=== PATIENT | female | born 1965 | race Caucasian/White ===

== ENCOUNTER 2016-12-31 16:38 | Emergency (ER) | payer MEDICAID ==
[~2016-12-31] VITALS: Ht 160 cm; Wt 99.8 kg
[~2016-12-31 16:38] MED LIST: LISI-646 PO
[2016-12-31 17:32] VITALS: BP 150/90
[2016-12-31] MEDS ORDERED: methylPREDNISolone SOD SUCC 125 MG/2 ML VL IM ONE (19:15)
[2016-12-31] MEDS ORDERED: diphenhdrAMINE HCL 25 MG CAP PO ONE (19:15)
[2016-12-31] MEDS ORDERED: methylPREDNISolone SOD SUCC 125 MG/2 ML VL IV ONE (19:45)
[2016-12-31] MEDS ORDERED: diphenhdrAMINE HCL 50 MG/1 ML VL IV ONE (19:45)
== END 2016-12-31 20:16 | disposition home or self-care (01) ==
LOC: ER 16:38 → EDBD 16:38 → ER 20:16
DX: T78.40XA Allergy, unspecified, initial encounter (principal); I10 Essential (primary) hypertension; F17.210 Nicotine dependence, cigarettes, uncomplicated; Z90.89 Acquired absence of other organs
CPT/HCPCS: 96374; 96375; 99284; J1200; J2930

== ENCOUNTER 2017-12-10 22:05 | Inpatient (IN) | payer MEDICAID, OTHER ==
[~2017-12-10] VITALS: Ht 153.4 cm; Wt 96.4 kg
[2017-12-10 23:38] LABS: Basophils # (auto) 0.1 uL; Basophils % (auto) 0.7 % (0.0-2.0); Eosinophils # (auto) 0.1 uL; Eosinophils % (auto) 1.4 % (0.0-7.0); Hematocrit 45.8 % (36.0-46.0); Hemoglobin 15.3 g/dL (12.2-16.2); Lymphocytes # (auto) 2.6 uL; Lymphocytes % (auto) 37.6 % (10.0-50.0); Mean Corpuscular Hemoglobin 28.7 pg (28.0-32.0); Mean Corpuscular Hgb Conc. 33.3 g/dL (32.0-36.0); Monocytes # (auto) 0.4 uL; Monocytes % (auto) 6.1 % (0.0-12.0); Neutrophils # (auto) 3.8 uL; Neutrophils % (auto) 54.2 % (37.0-80.0); Nucleated Red Blood Cells % 0.3 %; Platelet Count (auto) 182 10^3/uL (140-450); Red Blood Cells 5.33 10^6/uL (4.0-5.20); Red Cell Distribution Width 14.3 % (11.8-14.3)
[2017-12-10 23:53] LABS: Albumin 3.4 g/dL (3.4-5.0); Anion Gap 8 (5-15); Blood Urea Nitrogen 14 mg/dL (7-18); Calcium 9.9 mg/dL (8.5-10.1); Carbon Dioxide 27 mmol/L (21-32); Chloride 106 mmol/L (98-107); Glucose 100 mg/dL (74-106); INR 0.91 (0.9-1.15); Partial Thromboplastin Time 25.7 sec (22.64-33.71); Potassium 4.1 mmol/L (3.5-5.1); Prothrombin Time 9.9 sec (9.37-12.3); Sodium 141 mmol/L (136-145)
[2017-12-10 23:55] LABS: Alanine Aminotransferase 97 U/L (13-56); Aspartate Aminotransferase 51 U/L (15-37); BUN/Creatinine Ratio 12.7; GFR African American 67 mL/min; GFR Non-African American 55 mL/min
[2017-12-10 23:59] LABS: Alkaline Phosphatase 159 U/L (45-117); Bilirubin, Total 0.3 mg/dL (0.2-1.0); Total Protein 7.3 g/dL (6.4-8.2)
[2017-12-11] MEDS ORDERED: SODIUM CHLORIDE 0.9% 1,000 ML IV ONE (07:48)
[2017-12-11] MEDS ORDERED: TEMAZEPAM 15 MG CAP PO PRN (09:00)
[2017-12-11] MEDS ORDERED: ACETAMINOPHEN 325 MG TAB PO PRN (09:00)
[2017-12-11] MEDS ORDERED: LISINOPRIL 20 MG TAB PO ONE (09:00)
[2017-12-11] MEDS ORDERED: cloNIDine HCL 0.1 MG TAB PO PRN (09:00)
[2017-12-11] MEDS ORDERED: DOCUSATE SOD 100 MG CAP PO PRN (09:00)
[2017-12-11] MEDS ORDERED: ONDANSETRON HCL 4 MG/2 ML VIAL IV PRN (09:00)
[2017-12-11] MEDS: MULTIPLE VITAMIN TAB PO SCH (09:16)
[2017-12-11] MEDS: SODIUM CHLOR 0.9% PF (SALINE LOCK) 10ML VIAL/SYR IV SCH ×2 (09:16→22:32)
[2017-12-11] MEDS: NICOTINE 21MG/24 HR TOPICAL PATCH TD SCH (10:43)
[2017-12-11] MEDS: HYDROcodone-ACET 5/325MG TAB PO PRN (10:47)
[2017-12-11 12:25] LABS: Urine Bacteria NONE SEEN /hpf (None Seen); Urine Blood 1+ /uL (Negative); Urine Mucus FEW (None Seen); Urine Specific Gravity 1.026 (1.001-1.035); Urine WBC 11 /hpf (0 - 5)
[2017-12-11] MEDS ORDERED: LORazepam 2MG/ML-1ML VIAL IV PRN (18:30)
[2017-12-11 20:30] VITALS: BP 120/73
[2017-12-12 00:29] VITALS: BP 120/73
[2017-12-12] MEDS ORDERED: diphenhdrAMINE HCL 25 MG CAP PO ONE (00:30)
[2017-12-12 05:00] VITALS: BP 119/72
[2017-12-12] MEDS: SODIUM CHLOR 0.9% PF (SALINE LOCK) 10ML VIAL/SYR IV SCH ×3 (06:16→21:53)
[2017-12-12 07:40] LABS: Basophils # (auto) 0 uL; Basophils % (auto) 0.6 % (0.0-2.0); Eosinophils # (auto) 0.1 uL; Eosinophils % (auto) 2.2 % (0.0-7.0); Hematocrit 42.4 % (36.0-46.0); Hemoglobin 14.1 g/dL (12.2-16.2); Lymphocytes # (auto) 2.8 uL; Lymphocytes % (auto) 42.6 % (10.0-50.0); Mean Corpuscular Hemoglobin 28.7 pg (28.0-32.0); Mean Corpuscular Hgb Conc. 33.3 g/dL (32.0-36.0); Mean Corpuscular Volume 86.1 fL (80.0-100.0); Monocytes # (auto) 0.5 uL; Monocytes % (auto) 8.1 % (0.0-12.0); Neutrophils % (auto) 46.5 % (37.0-80.0); Nucleated Red Blood Cells % 0.3 %; Platelet Count (auto) 156 10^3/uL (140-450); Red Blood Cells 4.92 10^6/uL (4.0-5.20); Red Cell Distribution Width 13.9 % (11.8-14.3); White Blood Cell 6.5 10^3/uL (4.4-10.8)
[2017-12-12 07:45] LABS: Albumin 3.1 g/dL (3.4-5.0); BUN/Creatinine Ratio 19.8; Bilirubin, Total 0.4 mg/dL (0.2-1.0); Calcium 9.8 mg/dL (8.5-10.1); Total Protein 6.5 g/dL (6.4-8.2)
[2017-12-12 08:54] VITALS: BP 124/56
[2017-12-12] MEDS: MORPHINE SULFATE 8mg/ml INJ SDV IV PRN ×3 (08:57→17:01)
[2017-12-12] MEDS: LISINOPRIL 20 MG TAB PO SCH (10:00)
[2017-12-12] MEDS: NICOTINE 21MG/24 HR TOPICAL PATCH TD SCH (10:00)
[2017-12-12] MEDS: HYDROcodone-ACET 5/325MG TAB PO PRN ×2 (10:21→17:54)
[2017-12-12] MEDS: MULTIPLE VITAMIN TAB PO SCH (10:23)
[2017-12-12 11:56] LABS: Folate (Folic Acid) 7.68 ng/mL (5.38-24)
[2017-12-12] MEDS ORDERED: OPTISON 3ml Vial for INJ IV ONE (16:03)
[2017-12-12 16:27] VITALS: BP 137/86
[2017-12-12 19:30] LABS: Cholesterol 181 mg/dL (< 200); HDL Cholesterol 65 mg/dL (40-59); LDL Cholesterol 106 mg/dL (< 100); Triglycerides 118 mg/dL (< 150)
[2017-12-12] MEDS: ATORVASTATIN 20 MG TAB PO SCH (21:51)
[2017-12-12 22:00] VITALS: BP 128/65
[2017-12-13 05:00] VITALS: BP 118/66
[2017-12-13] MEDS: SODIUM CHLOR 0.9% PF (SALINE LOCK) 10ML VIAL/SYR IV SCH ×3 (05:28→21:30)
[2017-12-13 06:51] LABS: Albumin 3.4 g/dL (3.4-5.0); Calcium 10.3 mg/dL (8.5-10.1)
[2017-12-13 06:59] LABS: Bilirubin, Total 0.3 mg/dL (0.2-1.0); Potassium 4.1 mmol/L (3.5-5.1); Total Protein 6.8 g/dL (6.4-8.2)
[2017-12-13 09:00] VITALS: BP 159/87
[2017-12-13] MEDS: ASPirin-EC 81 mg tab PO SCH (09:22)
[2017-12-13] MEDS: MULTIPLE VITAMIN TAB PO SCH (09:22)
[2017-12-13] MEDS: LISINOPRIL 20 MG TAB PO SCH (09:28)
[2017-12-13 13:00] VITALS: BP 129/81
[2017-12-13] MEDS ORDERED: LIDOCAINE VISCOUS 2% 15ML UD PO ONE (14:00)
[2017-12-13] MEDS ORDERED: fentaNYL CITRATE 100 MCG/2 ML VL IV ONE (14:00)
[2017-12-13] MEDS ORDERED: MIDAZOLAM HCL 1MG/1ML-2 ML VIAL IV ONE (14:00)
[2017-12-13] MEDS ORDERED: LIDOCAINE VISCOUS 2% 15ML UD ONE (14:01)
[2017-12-13] MEDS ORDERED: fentaNYL CITRATE 100 MCG/2 ML VL ONE (14:02)
[2017-12-13] MEDS ORDERED: MIDAZOLAM HCL 1MG/1ML-2 ML VIAL ONE (14:02)
[2017-12-13 15:47] VITALS: BP 133/76
[2017-12-13 21:30] VITALS: BP 150/83
[2017-12-13] MEDS: ATORVASTATIN 20 MG TAB PO SCH (21:30)
[2017-12-14 04:55] VITALS: BP 130/71
[2017-12-14] MEDS: SODIUM CHLOR 0.9% PF (SALINE LOCK) 10ML VIAL/SYR IV SCH ×2 (05:53→09:04)
[2017-12-14 06:59] LABS: Basophils # (auto) 0 uL; Basophils % (auto) 0.5 % (0.0-2.0); Eosinophils # (auto) 0.1 uL; Eosinophils % (auto) 1.8 % (0.0-7.0); Hematocrit 43.9 % (36.0-46.0); Hemoglobin 14.9 g/dL (12.2-16.2); Lymphocytes # (auto) 2.5 uL; Lymphocytes % (auto) 38.3 % (10.0-50.0); Mean Corpuscular Hemoglobin 28.9 pg (28.0-32.0); Mean Corpuscular Hgb Conc. 33.9 g/dL (32.0-36.0); Mean Corpuscular Volume 85.3 fL (80.0-100.0); Monocytes # (auto) 0.5 uL; Monocytes % (auto) 7.7 % (0.0-12.0); Neutrophils # (auto) 3.4 uL; Neutrophils % (auto) 51.7 % (37.0-80.0); Nucleated Red Blood Cells % 0.2 %; Platelet Count (auto) 157 10^3/uL (140-450); Red Blood Cells 5.15 10^6/uL (4.0-5.20); Red Cell Distribution Width 13.7 % (11.8-14.3); White Blood Cell 6.6 10^3/uL (4.4-10.8)
[2017-12-14 07:14] LABS: BUN/Creatinine Ratio 21.2; Calcium 10.2 mg/dL (8.5-10.1)
[2017-12-14 09:00] VITALS: BP 140/80
[2017-12-14] MEDS: ASPirin-EC 81 mg tab PO SCH (09:04)
[2017-12-14] MEDS: MULTIPLE VITAMIN TAB PO SCH (09:04)
[2017-12-14] MEDS: LISINOPRIL 20 MG TAB PO SCH (09:04)
[2017-12-14 13:00] VITALS: BP 138/76
== END 2017-12-14 12:51 | disposition home or self-care (01) | DRG 45 ==
LOC: EDBD 22:05 → ER 22:05 → OVERFLOW 22:06 → TELE-EAST 12-11 20:13 → EAST 12-11 21:55 → TELE-EAST 12-12 01:33 → EAST 12-13 22:52
PROVIDERS: ADMIT Internal Medicine; ATTEND Internal Medicine
PROC: B24BZZ4 Ultrasonography of Heart with Aorta, Transesophageal (ICD-10-PCS; principal; 2017-12-13)
DX: I63.9 Cerebral infarction, unspecified (principal); G93.6 Cerebral edema; I67.4 Hypertensive encephalopathy; N18.3 Chronic kidney disease, stage 3 (moderate); Z68.41 Body mass index [BMI] 40.0-44.9, adult; E66.01 Morbid (severe) obesity due to excess calories; I16.1 Hypertensive emergency; I12.9 Hypertensive chronic kidney disease with stage 1 through stage 4 chronic kidney disease, or unspecified chronic kidney disease; G47.00 Insomnia, unspecified; K59.00 Constipation, unspecified; R79.89 Other specified abnormal findings of blood chemistry; F17.210 Nicotine dependence, cigarettes, uncomplicated; Z91.14 Patient's other noncompliance with medication regimen; Z91.19 Patient's noncompliance with other medical treatment and regimen; Z90.49 Acquired absence of other specified parts of digestive tract; Z90.89 Acquired absence of other organs; Z86.73 Personal history of transient ischemic attack (TIA), and cerebral infarction without residual deficits; Z82.49 Family history of ischemic heart disease and other diseases of the circulatory system
CPT/HCPCS: 36415; 70450; 70551; 71046; 80048; 80053; 80061; 81001; 82607; 82746; 83735; 84443; 84484; 85025; 85610; 85730; 93005; 93306; 93312; 93886; 94761; 95819; 96360; J2250; J2270; Q9956

== ENCOUNTER 2018-05-22 12:48 | Emergency (ER) | payer MEDICAID ==
[~2018-05-22] VITALS: Ht 157.5 cm; Wt 100.7 kg
[2018-05-22 13:23] LABS: Basophils # (auto) 0.1 uL; Basophils % (auto) 0.8 % (0.0-2.0); Eosinophils # (auto) 0.1 uL; Hematocrit 43.8 % (36.0-46.0); Hemoglobin 14.7 g/dL (12.2-16.2); Lymphocytes # (auto) 2.5 uL; Lymphocytes % (auto) 36.3 % (10.0-50.0); Mean Corpuscular Hemoglobin 29.5 pg (28.0-32.0); Mean Corpuscular Hgb Conc. 33.6 g/dL (32.0-36.0); Mean Corpuscular Volume 87.8 fL (80.0-100.0); Monocytes # (auto) 0.4 uL; Monocytes % (auto) 6.5 % (0.0-12.0); Neutrophils # (auto) 3.8 uL; Neutrophils % (auto) 55.4 % (37.0-80.0); Nucleated Red Blood Cells % 0.2 %; Platelet Count (auto) 188 10^3/uL (140-450); Red Blood Cells 4.99 10^6/uL (4.0-5.20); Red Cell Distribution Width 13.6 % (11.8-14.3); White Blood Cell 6.9 10^3/uL (4.4-10.8)
[2018-05-22 13:33] LABS: INR 0.89 (0.9-1.15); Partial Thromboplastin Time 25.9 sec (23.78-33.04); Prothrombin Time 9.6 sec (9.27-12.13)
[2018-05-22 13:37] LABS: Albumin 3.8 g/dL (3.4-5.0); BUN/Creatinine Ratio 6.8; Bilirubin, Total 0.6 mg/dL (0.2-1.0); Calcium 10.4 mg/dL (8.5-10.1); Potassium 4.7 mmol/L (3.5-5.1); Total Protein 7.7 g/dL (6.4-8.2)
[2018-05-22 15:53] VITALS: BP 157/86
== END 2018-05-22 15:30 | disposition home or self-care (01) ==
LOC: ER 12:49
DX: D25.9 Leiomyoma of uterus, unspecified (principal); I10 Essential (primary) hypertension; F17.210 Nicotine dependence, cigarettes, uncomplicated; F12.10 Cannabis abuse, uncomplicated; Z90.49 Acquired absence of other specified parts of digestive tract
CPT/HCPCS: 36415; 76856; 80053; 85025; 85610; 85730

== ENCOUNTER 2022-02-17 08:08 | Emergency (ER) | payer MEDICAID ==
[~2022-02-17] VITALS: Ht 160 cm; Wt 108.9 kg
[2022-02-17] MEDS ORDERED: cloNIDine HCL 0.1 MG TAB PO ONE ×2 (08:30)
[2022-02-17] MEDS ORDERED: HYDROcodone-ACET 5/325MG TAB PO ONE (08:45)
[2022-02-17 09:11] VITALS: BP 150/77
[2022-02-17] MEDS ORDERED: ACET-1080 PO (09:17)
== END 2022-02-17 10:48 | disposition home or self-care (01) ==
LOC: ER 08:08
DX: S93.502A Unspecified sprain of left great toe, initial encounter (principal); F17.210 Nicotine dependence, cigarettes, uncomplicated; F12.10 Cannabis abuse, uncomplicated; I12.9 Hypertensive chronic kidney disease with stage 1 through stage 4 chronic kidney disease, or unspecified chronic kidney disease; N18.9 Chronic kidney disease, unspecified; Z90.49 Acquired absence of other specified parts of digestive tract; W22.8XXA Striking against or struck by other objects, initial encounter; Y93.39 Activity, other involving climbing, rappelling and jumping off; Y92.89 Other specified places as the place of occurrence of the external cause; Y99.8 Other external cause status
CPT/HCPCS: 73630

== ENCOUNTER 2023-05-05 15:59 | Emergency (ER) | payer MEDICAID ==
[~2023-05-05] VITALS: Ht 160 cm; Wt 118.0 kg
[~2023-05-05 15:59] MED LIST changes: +ACET-1080 PO; -LISI-646 PO
[2023-05-05] MEDS ORDERED: HYDROcodone-ACET 10/325MG TAB PO ONE (16:30)
[2023-05-05] MEDS ORDERED: HYDR-4798 PO (18:09)
[2023-05-05 18:32] VITALS: BP 125/90; PULSE 72; RESP 18; TEMP 98.6; O2SAT 98
== END 2023-05-05 18:34 | disposition home or self-care (01) ==
LOC: ER 15:59
DX: S93.402A Sprain of unspecified ligament of left ankle, initial encounter (principal); S93.602A Unspecified sprain of left foot, initial encounter; I12.9 Hypertensive chronic kidney disease with stage 1 through stage 4 chronic kidney disease, or unspecified chronic kidney disease; N18.9 Chronic kidney disease, unspecified; F17.210 Nicotine dependence, cigarettes, uncomplicated; Z90.49 Acquired absence of other specified parts of digestive tract; Z90.89 Acquired absence of other organs; Z79.899 Other long term (current) drug therapy; W18.39XA Other fall on same level, initial encounter; Y93.89 Activity, other specified; Y92.89 Other specified places as the place of occurrence of the external cause; Y99.8 Other external cause status
CPT/HCPCS: 73590; 73610; 73630

== ENCOUNTER 2024-11-16 17:47 | Inpatient (IN) | payer MEDICAID ==
[~2024-11-16] VITALS: Ht 157.5 cm; Wt 116.7 kg
[~2024-11-16 17:47] MED LIST changes: +HYDR-4798 PO
--- NOTE | 2024-11-16 18:53 | ED.PDOC ---
SOB-HPI HPI Comments 59-year-old female presents with a chief complaint of SOB x 2 days with associated midsternal chest pain. Patient states that she has been having a cough for "years" and that it is chronic. Patient is also endorsing that it feels heavy in her chest and that it is worsening. Patient states she uses inhalers at home. Patient mentions that she has a history of lung cancer, but has not had treatment or biopsy for it. Patient is sating at 98% on room air. PMHx: COPD, HTN, DM, Lung Cancer, Liver Disease, CKF PSHx" Cholecystectomy, Tonsillectomy, HPI: Poor Historian. REVIEW OF SYSTEMS: CONSTITUTIONAL: Denies acute: fever, diaphoresis, chills, generalized weakness. HEAD: Denies acute: headache, photophobia Eyes: Denies acute: Double vision, vision loss, eye pain, eye discharge. EARS: Denies acute: tinnitus, hearing loss, ear discharge, ear pain, THROAT: Denies acute: sore throat, swelling, difficulty swallowing , pain with swal lowing, change in voice. NECK: Denies acute: neck pain, neck swelling, stiff neck. HEART: Denies acute : palpitations, LUNGS: Denies acute: wheezing, cough, hemoptysis ABDOMEN: Denies acute: abdominal pain, Nausea, Vomiting, diarrhea, melena , hematemesis, hematochezia SKIN: Denies acute: rash, redness, lesions, itchiness. EXTREMITIES: Denies acute: calf pain, numbness, tingling, weakness, denies pain in extremity. Denies acute: Low back pain. Neuro: Denies acute: focal neurological deficit, motor or sensory focal neurological deficit, tremors, seizure like activity, confusion, dizziness, change in mental status, loss of bowel or bladder function, cauda equina like symptoms. : Denies acute: dysuria, hematuria, flank pain, increase in urinary frequency. PSYCH: Denies acute: hallucination, suicidal ideation, homicidal ideation. FEMALE: Denies acute: abnormal vaginal bleeding, foul odor, unusual discharge. PHYSICAL EXAM: General: no acute distress, awake and alert. Head: normocephalic, atraumatic. Neck: supple, trachea is midline, no swelling. Throat: Normal phonation. Eyes:, no erythema, no purulent discharge, no proptosis, no icterus. Heart: regular rate, regular rhythm, no significant murmur appreciated. Lungs: no apparent respiratory distress, Able to speak in full sentences. No wheezing, no rhonchi, no crackles. No stridors Clear to auscultation bilaterally. Abdomen: non tender to palpation, non distended, soft, no guarding, no rebound, + bowel sounds. Neuro: Awake, Alert, oriented to name, self, situation, follows commands GCS=15. Speech is normal. Skin: no petechia, no purpura, no cyanosis, non-pale, not jaundice. Lower extremities: --no - Pitting edema no deformity, no focal swelling, no calf TTP. Makes eye contact. moves all four extremities. Face: no apparent facial droop. Ambulating in the ED independently. 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 Was a procedure done?: No Differential Dx Differential Diagnosis: Other (DDx include ACS, unstable angina, anxiety, PE, pneumothroax, neoplasm, cardiac ischemia, COPD, asthma, CHF, pleural effusion, tobacco abuse, pneumonia, hypoxia, hypercapnia, anemia., infection/sepsis., pulmonary edema. Asthma, Cardiac tamponade, infection.) X-Ray, Labs, Meds, VS Vital Signs Date Time Temp Pulse Resp B/P (MAP) Pulse Ox O2 Delivery O2 Flow Rate FiO2 11/16/24 20:54 81 153/99 (117) 11/16/24 20:54 153/99 11/16/24 20:34 145/100 11/16/24 20:17 98.4 79 16 145/100 (115) 96 98.4 11/16/24 20:17 79 16 96 Room Air 11/16/24 18:59 74 11/16/24 18:52 98.0 59 16 154/107 (123) 98 98.0 Lab Test 11/16/24 20:24 11/16/24 19:16 Range/Units Troponin I High Sensitivity < 3 L < 3 L </=34 ng/L White Blood Count 8.5 4.4-10.8 10^3/uL Red Blood Count 5.65 H 4.0-5.20 10^6/uL Hemoglobin 16.5 H 12.2-16.2 g/dL Hematocrit 49.2 H 36.0-46.0 % Mean Corpuscular Volume 87.0 80.0-100.0 fL Mean Corpuscular Hemoglobin 29.1 28.0-32.0 pg Mean Corpuscular Hemoglobin Concent 33.4 32.0-36.0 g/dL Red Cell Distribution Width 14.0 11.8-14.3 % Platelet Count 181 140-450 10^3/uL Mean Platelet Volume 10.9 H 6.9-10.8 fL Neutrophils (%) (Auto) 54.8 37.0-80.0 % Lymphocytes (%) (Auto) 34.0 10.0-50.0 % Monocytes (%) (Auto) 8.5 0.0-12.0 % Eosinophils (%) (Auto) 1.6 0.0-7.0 % Basophils (%) (Auto) 1.1 0.0-2.0 % Neutrophils # (Auto) 4.6 1.6-8.6 10 ^3/uL Lymphocytes # (Auto) 2.9 0.4-5.4 10 ^3/uL Monocytes # (Auto) 0.7 0-1.3 10 ^3/uL Eosinophils # (Auto) 0.1 0-0.8 10 ^3/uL Basophils # (Auto) 0.1 0-0.2 10 ^3/uL Nucleated Red Blood Cells 0.5 % Sodium Level 137 136-145 mmol/L Potassium Level 4.1 3.5-5.1 mmol/L Chloride Level 102 98-107 mmol/L Carbon Dioxide Level 28 20-31 mmol/L Anion Gap 7 5-15 Blood Urea Nitrogen 10 9-23 mg/dL Creatinine 0.99 0.550-1.02 mg/dL Glomerular Filtration Rate Calc 65 >90 mL/min BUN/Creatinine Ratio 10.1 10.0-20.0 Serum Glucose 109 H 74-106 mg/dL Lactic Acid Level 1.2 0.4-2.0 mmol/L Calcium Level 11.5 H 8.7-10.4 mg/dL Total Bilirubin 0.6 0.2-1.0 mg/dL Aspartate Amino Transferase (AST) 42 H 13-40 U/L Alanine Aminotransferase (ALT) 72 H 7-40 U/L Alkaline Phosphatase 175 H 46-116 U/L B-Type Natriuretic Peptide 27.06 0-100 pg/mL Total Protein 7.7 5.7-8.2 g/dL Albumin 4.9 H 3.2-4.8 g/dL Current Medications Medications (Trade) Dose Ordered Sig/Ariela Route Start Time Stop Time Status Last Admin Albuterol (Ventolin Medneb) 2.5 mg ONCE ONCE NEB 11/16/24 18:45 11/16/24 18:46 DC 11/16/24 19:19 Ipratropium [place] (Atrovent Medneb) 1 mg ONCE ONCE NEB 11/16/24 18:45 11/16/24 18:46 DC 11/16/24 19:19 Methylprednisolone Sodium Succinate (Solu Medrol) 125 mg ONCE ONCE IV 11/16/24 18:45 11/16/24 18:46 DC 11/16/24 20:17 Nitroglycerin (Ntrostat Sublingual) 0.4 mg ONCE ONCE SL 11/16/24 20:30 11/16/24 20:31 DC 11/16/24 20:34 PATIENT: ZEESHAN PEREZ ACCT: [id number] UNIT: [id number] : 1965 LOC: ER ROOM / BED: / AGE / SEX: 59 / F ADM STATUS: REG ER SERVICE [id number] ORDERING PHYSICIAN: BHAVIN CHOI DO PROCEDURE(s): CXRP - CHEST PORTABLE REASON: sob/cp ORDER NUMBER(s): [id number], ACCESSION NUMBER(s): [id number] INDICATION: sob/cp TECHNIQUE: Frontal view of the chest. COMPARISON: None FINDINGS: The heart and mediastinal contours are grossly unremarkable. There is no evidence of pleural disease. The lungs are clear. The bony structures of the chest are intact without fracture. IMPRESSION: 1. No evidence of acute disease. ATED BY: MARGI COLLIER MD DICTATED DATE/TIME: 11/16/241905 SIGNED BY: MARGI COLLIER MD SIGNED DATE/TIME: 11/16/241905 Time of 1ST Reevaluation: 19:03 Reevaluation 1ST: Unchanged Time of 2ND Reevaluation: 21:59 Reevaluation 2ND: Improved Patient Education/Counseling: Diagnosis, Treatment Family Education/Counseling: No Family Present Comments Patient presented with the above HPI.---chest pain/shortness of breath---workup was initiated. patient was found with the above mentioned diagnosis. the following medications were ordered: please refer to order lists of meds and tests obtained by myself Dr. Choi. Patient ED course and VS have been stabilized. Patient has been reassessed in the ED and remained in a stable condition. Pertinent incidental findings were discussed with the patient and/or family. Patient/family voices understanding and is agreeable with plan. Patient has been observed in the ED adequate length of time to insure improvemen t/stability. Escalation of care considered: Consideration of escalation to observation or admission Patient was ADMITTED to the medicine team for further evaluation and treatment of their presentation. All the reports of any imaging studies that were ordered by myself were reviewed by myself. Departure 1 Departure Time of Disposition: 20:36 Impression: Primary Impression: Chest pain Additional Impressions: Dyspnea HTN (hypertension) Disposition: ADMITTED INPATIENT Admit to: Tele Condition: Guarded Discharged With: Self Critical Care Note Critical Care Time?: No I personally scribed for BHAVIN CHOI DO ([email or web address]) on 11/16/24 at 18:53. Electronically submitted by John Rios ([email or web address]). I personally scribed for BHAVIN CHOI DO ([email or web address]) on 11/16/24 at 19:11. Electronically submitted by John Rios ([email or web address]). BHAVIN CHOI DO Nov 16, 2024 18:53
--- NOTE | 2024-11-16 19:08 | DVH ---
INDICATION: sob/cp TECHNIQUE: Frontal view of the chest. COMPARISON: None FINDINGS: . The heart and mediastinal contours are grossly unremarkable. There is no evidence of pleural disea se. The lungs are clear. The bony structures of the chest are intact without fracture. IMPRESSION: 1. No evidence of acute disease.
[2024-11-16] MEDS: IPRATROPIUM BROM 0.5 MG/2.5ML INH SOL NEB ONE (19:19)
[2024-11-16] MEDS: ALBUTEROL SULF 2.5 MG/0.5ML(0.5%) NEB SOLN NEB ONE (19:19)
[2024-11-16 19:35] LABS: Basophils # (auto) 0.1 10 ^3/uL (0-0.2); Basophils % (auto) 1.1 % (0.0-2.0); Eosinophils # (auto) 0.1 10 ^3/uL (0-0.8); Eosinophils % (auto) 1.6 % (0.0-7.0); Hematocrit 49.2 % (36.0-46.0); Hemoglobin 16.5 g/dL (12.2-16.2); Lymphocytes # (auto) 2.9 10 ^3/uL (0.4-5.4); Mean Corpuscular Hemoglobin 29.1 pg (28.0-32.0); Mean Corpuscular Hgb Conc. 33.4 g/dL (32.0-36.0); Monocytes # (auto) 0.7 10 ^3/uL (0-1.3); Monocytes % (auto) 8.5 % (0.0-12.0); Neutrophils # (auto) 4.6 10 ^3/uL (1.6-8.6); Neutrophils % (auto) 54.8 % (37.0-80.0); Nucleated Red Blood Cells % 0.5 %; Platelet Count (auto) 181 10^3/uL (140-450); Red Blood Cells 5.65 10^6/uL (4.0-5.20); White Blood Cell 8.5 10^3/uL (4.4-10.8)
[2024-11-16 19:48] LABS: Anion Gap 7 (5-15); BUN/Creatinine Ratio 10.1 (10.0-20.0); Blood Urea Nitrogen 10 mg/dL (9-23); Carbon Dioxide 28 mmol/L (20-31); Chloride 102 mmol/L (98-107); Potassium 4.1 mmol/L (3.5-5.1); Sodium 137 mmol/L (136-145); Total Protein 7.7 g/dL (5.7-8.2)
[2024-11-16 19:49] LABS: Alanine Aminotransferase 72 U/L (7-40); Albumin 4.9 g/dL (3.2-4.8); Alkaline Phosphatase 175 U/L (46-116); Aspartate Aminotransferase 42 U/L (13-40); Bilirubin, Total 0.6 mg/dL (0.2-1.0); Calcium 11.5 mg/dL (8.7-10.4); Glucose 109 mg/dL (74-106)
[2024-11-16] MEDS: methylPREDNISolone SOD SUCC 125 MG/2 ML VL IV ONE (20:17)
[2024-11-16] MEDS: NITROGLYCERIN 0.4 MG SL TAB SL ONE (20:34)
[2024-11-16 22:27] LABS: Base Excess -1.6 mmol/L (-2.0-3.0)
[2024-11-16] MEDS ORDERED: ONDANSETRON HCL 4 MG/2 ML VIAL IV PRN (23:30)
[2024-11-16] MEDS ORDERED: NITROGLYCERIN 0.4 MG SL TAB SL PRN (23:30)
[2024-11-16] MEDS ORDERED: ACETAMINOPHEN 325 MG TAB PO PRN (23:30)
--- NOTE | 2024-11-16 23:44 | DVHHPRES ---
History of Present Illness Resident Creating Document: ROSALIND MONSALVE RESDIENT History of Present Illness 59-year-old female with past medical history of COPD, CVA, hypertension, diabetes type 2, liver disease, CKD, and possible lung cancer came to the hospital due to shortness of breaths functional class 4 since 2 days which progressively has worsened. She also reports productive cough with brownish green phlegm, pressure-like chest discomfort, neck pain, headache, and generalized weakness. She denies fever, nausea, vomiting, abdominal pain, or any recent bowel and bladder habit changes. PMHx: COPD, CVA, hypertension, diabetes type 2, liver disease, CKD, and possible lung cancer (per patient she was told that she has 3 lesion in his lung, possible cancer, the patient did not give permission to perform biopsy 0 4 the follow up. PSHx: Cholecystectomy, tonsillectomy and Family history: Noncontributory Social history: Current smoker, with 50 pack year history, smokes, lives at home alone, denies any other drug use. Home medication: Lisinopril, albuterol, amlodipine, statin Allergic history: No known allergy Review of Systems Review of Systems General: Reports generalized weakness HEENT: No headaches, visiual changes, hearing loss, tinnitus, nasal congestion and discharge, and sore throat. Cardiovascular: Reports chest pain Respiratory: Reports shortness of breaths, productive cough of brown squamous phlegm Gastrointestinal: Denies nausea, vomiting, dysphagia, odynophagia, heartburn, abdominal pain, flatulence, bloating, diarrhea, constipation, change in stool, or blood in stool. Genitourinary: No dysuria, hematuria, discharge, frequency, urgency, nocturia, incontinence, and urinary retention. Endocrine: No heat or cold intolerance, polydipsia, polyuria, and polyphagia. Neurological: No dizziness, extremity weakness and numbness, tremors, gait disturbance, seizures, and memory impairment. Psychiatric: Denies depression, anxiety,or insomnia. Musculoskeletal: Denies neck pain, stiffness and swelling, back pain, muscle weakness, joint pain, stiffness, swelling, or limited range of motion. Skin: No rashes, itching, skin lesion, changes in hair, nail, skin texture and breast. Hematologic/Lymphatic: Denies easy bruising, bleeding tendencies, or lymph node enlargement. Allergies: Coded Allergies: NO KNOWN ALLERGIES (Unverified , 03/18/14) Medications Current Medications Medications Dose Ordered Sig/Ariela Route Start Time Stop Time Status Last Admin Dose Admin Acetaminophen 650 mg Q6HP PRN PO 11/16/24 23:30 UNV Acetaminophen/ Hydrocodone Bitart 1 tab Q4HP PRN PO 11/16/24 23:30 UNV Ondansetron HCl 4 mg Q4HP PRN IV 11/16/24 23:30 UNV Enoxaparin Sodium 40 mg DAILY SC 11/17/24 10:00 UNV Nitroglycerin 0.4 mg Q5MINP PRN SL 11/16/24 23:30 UNV Albuterol 2.5 mg Q4HWA NEB 11/17/24 06:00 UNV Ipratropium [place] 0.5 mg Q4HWA BANNER 11/17/24 06:00 UNV Azithromycin 250 ml @ 125 mls/hr DAILY IV 11/17/24 10:00 UNV Atorvastatin Calcium 40 mg HS PO 11/17/24 22:00 UNV Lisinopril 10 mg DAILY PO 11/17/24 10:00 UNV Amlodipine Besylate 5 mg DAILY PO 11/17/24 10:00 UNV Pantoprazole Sodium 40 mg DAILY IV 11/17/24 10:00 UNV Methylprednisolone Sodium Succinate 40 mg DAILY IV 11/17/24 10:00 UNV Exam Vital Signs Vital Signs Date Time Temp Pulse Resp B/P (MAP) Pulse Ox O2 Delivery O2 Flow Rate FiO2 11/16/24 23:25 97.2 84 16 151/95 (113) 97 97.2 11/16/24 20:17 Room Air Exam General Appearance: Alert, Oriented X3, Cooperative, No acute distress HEENT: Atraumatic, PERRLA, EOMI, Mucous membrane moist/pink Respiratory: Bilateral mild rhonchi Cardiovascular: Regular rate, Normal S1, Normal S2, No murmurs, no chest wall tenderness Abdominal: Normal bowel sounds, Soft, No tenderness, No hepatospenomegaly, No masses Extremities: No clubbing, No cyanosis, No edema, Normal pulses, No tenderness/swelling Skin: No rashes, No breakdown, No significant lesion Neuro: Normal gait, Normal speech, Strength at 5/5 X4 ext, Normal tone, Sensation intact, Cranial nerves 3-12 NL, Reflexes 2+ Psych/Mental Status: Mental status NL, Mood NL Labs/Xrays Labs Test 11/16/24 22:14 11/16/24 21:02 11/16/24 19:16 Range/Units Troponin I High Sensitivity < 3 L </=34 ng/L Blood Gas Specimen Type Arterial Blood Gas Sample Site Right radial Blood Gas Patient Temperature 37.0 Arterial Blood Date Drawn [id number] Arterial Blood pH 7.433 7.350-7.450 Arterial Blood Partial Pressure CO2 33.1 32.0-45.0 mmHg Arterial Blood Partial Pressure O2 80.2 L 83.0-108.0 mmHg Arterial Blood HCO3 21.6 21.0-28.0 mmol/L Arterial Blood Oxygen Saturation 96.6 94.0-98.0 % Arterial Blood Base Excess -1.6 -2.0-3.0 mmol/L Arterial Blood Oxyhemoglobin 93.6 L 94.0-98.0 % Arterial Blood Carboxyhemoglobin 2.4 H 0.5-1.5 % Arterial Blood Methemoglobin 0.7 0.0-1.5 % Jose Francisco Test Yes Blood Gas Total Hemoglobin 17.40 H 12.0-16.0 g/dL Blood Gas Modality Room air FiO2 % 21.0 White Blood Count 8.5 4.4-10.8 10^3/uL Red Blood Count 5.65 H 4.0-5.20 10^6/uL Hemoglobin 16.5 H 12.2-16.2 g/dL Hematocrit 49.2 H 36.0-46.0 % Mean Corpuscular Volume 87.0 80.0-100.0 fL Mean Corpuscular Hemoglobin 29.1 28.0-32.0 pg Mean Corpuscular Hemoglobin Concent 33.4 32.0-36.0 g/dL Red Cell Distribution Width 14.0 11.8-14.3 % Platelet Count 181 140-450 10^3/uL Mean Platelet Volume 10.9 H 6.9-10.8 fL Neutrophils (%) (Auto) 54.8 37.0-80.0 % Lymphocytes (%) (Auto) 34.0 10.0-50.0 % Monocytes (%) (Auto) 8.5 0.0-12.0 % Eosinophils (%) (Auto) 1.6 0.0-7.0 % Basophils (%) (Auto) 1.1 0.0-2.0 % Neutrophils # (Auto) 4.6 1.6-8.6 10 ^3/uL Lymphocytes # (Auto) 2.9 0.4-5.4 10 ^3/uL Monocytes # (Auto) 0.7 0-1.3 10 ^3/uL Eosinophils # (Auto) 0.1 0-0.8 10 ^3/uL Basophils # (Auto) 0.1 0-0.2 10 ^3/uL Nucleated Red Blood Cells 0.5 % Sodium Level 137 136-145 mmol/L Potassium Level 4.1 3.5-5.1 mmol/L Chloride Level 102 98-107 mmol/L Carbon Dioxide Level 28 20-31 mmol/L Anion Gap 7 5-15 Blood Urea Nitrogen 10 9-23 mg/dL Creatinine 0.99 0.550-1.02 mg/dL Glomerular Filtration Rate Calc 65 >90 mL/min BUN/Creatinine Ratio 10.1 10.0-20.0 Serum Glucose 109 H 74-106 mg/dL Lactic Acid Level 1.2 0.4-2.0 mmol/L Calcium Level 11.5 H 8.7-10.4 mg/dL Total Bilirubin 0.6 0.2-1.0 mg/dL Aspartate Amino Transferase (AST) 42 H 13-40 U/L Alanine Aminotransferase (ALT) 72 H 7-40 U/L Alkaline Phosphatase 175 H 46-116 U/L B-Type Natriuretic Peptide 27.06 0-100 pg/mL Total Protein 7.7 5.7-8.2 g/dL Albumin 4.9 H 3.2-4.8 g/dL Assessment/Plan Assessment/Plan Acute exacerbation COPD History of asthma ? Lung cancer Sputum culture, check MRSA, COVID-19 and influenza Chest x-ray shows no visible consolidation Empiric antibiotic, azithromycin IV fluid Breathing treatment Chest discomfort, possible ACS Hypertension EKGs shows normal sinus rhythm with no acute ST or T-wave changes Serial trop I is within normal limits Pain control Atorvastatin Aspirin History of diabetes type 2, insulin regular according to mild SS Transaminitis Drug abuse UDS is positive for methamphetamine and marijuana DIET: Cardiac diet DVT PROPHYLAXIS: Lovenox GI PROPHYLAXIS:: Protonix CODE STATUS: Goal of care discussed for more than 18 minutes, DNR DISPOSITION: Telemetry Patient's status and plan discussed with the patient and the patient's nephew at the bedside. Case discussed with Dr. Hernandez. Plan discussed with: Patient, Other (RN) My Orders Orders - ROSALIND MONSALVE RESDIGNA Procedure Category Date Status Time Admit ADMIT 11/16/24 Transmitted 23:30 Code Status CODE 11/16/24 Transmitted 23:30 Vital Signs DAGOBERTO 11/16/24 In Process 23:30 Review Orders With [facility] 11/16/24 In Process Adm.Md 23:30 Consistent DIET 11/17/24 Transmitted Carb(Ccho)Diabetes Breakfast Acetaminophen Tablet PHA 11/16/24 Logged (Tylenol Tablet) 23:30 Notify Md Of Changes [facility] 11/16/24 In Process From Base 23:30 Advance Directive DAGOBERTO 11/16/24 In Process 23:30 Echo 2d Mode Cardiac US 11/16/24 Logged DOP 23:30 Lipid Panel LAB 11/16/24 Logged 23:30 Patient Condition ORDERS 11/16/24 Transmitted 23:30 Allergies DAGOBERTO 11/16/24 In Process 23:30 Hydrocodone-Acet PHA 11/16/24 Logged 5/325mg Tab ([place] 23:30 Ondansetron Hcl PHA 11/16/24 Logged (Zofran) 23:30 Hemoglobin A1c LAB 11/16/24 In Process 23:30 Enoxaparin Sodium PHA 11/17/24 Logged (Lovenox) 10:00 Stat Ekg For Chest DAGOBERTO 11/16/24 In Process Pain 23:30 Notify Md Of Changes [facility] 11/16/24 In Process From Base 23:30 Construction Management Assistant For [facility] 11/16/24 In Process 24 Hours 23:30 Emergency Dysrhythmia DAGOBERTO 11/16/24 In Process Protocol 23:30 Rhythm Strips Once DAGOBERTO 11/16/24 In Process Every Shift 23:30 Nitroglycerin PHA 11/16/24 Logged Sublingual (Ntrostat 23:30 Parathyroid Hormone LAB 11/16/24 Logged Intact 23:30 Magnesium LAB 11/16/24 Logged 23:30 Thyroid Stimulating LAB 11/16/24 Logged Hormone 23:30 Vitamin D, 25-Hydroxy LAB 11/16/24 Logged 23:30 Drug Screen LAB 11/16/24 Logged 23:30 PTPTT LAB 11/16/24 Logged 23:30 Blood Alcohol LAB 11/16/24 Logged 23:30 Complete Blood Count LAB 11/17/24 Verified 04:00 Comprehensive LAB 11/17/24 Verified Metabolic Panel 04:00 Covid19 Antigen Kianna LAB 11/16/24 Logged D-Dimer LAB 11/16/24 Logged 23:30 Albuterol Medneb PHA 11/17/24 Logged (Ventolin Medneb) 06:00 Ipratropium Medneb PHA 11/17/24 Logged (Atrovent Medneb) 06:00 Azithromycin 500mg/ PHA 11/17/24 Logged 250ml (Zithromax 50 10:00 Azithromycin 500mg/ PHA 11/16/24 Logged 250ml (Zithromax 50 23:30 Atorvastatin (Lipitor) PHA 11/16/24 Logged 23:30 Atorvastatin (Lipitor) PHA 11/17/24 Logged 22:00 Lisinopril Tablet PHA 11/16/24 Logged (Zestril Tablet) 23:30 Lisinopril Tablet PHA 11/17/24 Logged (Zestril Tablet) 10:00 Amlodipine Tablet PHA 11/17/24 Logged (Norvasc Tablet) 10:00 Amlodipine Tablet PHA 11/16/24 Logged (Norvasc Tablet) 23:30 Sodium Chloride 0.9% PHA 11/16/24 Logged 23:30 Pantoprazole PHA 11/16/24 Logged (Protonix) 23:30 Pantoprazole PHA 11/17/24 Logged (Protonix) 10:00 Methylprednisolone PHA 11/17/24 Logged Sod Succ (Solu Medrol 10:00 Date of Service: Nov 16, 2024 Billing Provider: RAINE HERNANDEZ MD Common Visit Codes: [id number] INP/OBS CARE (HIGH) ROSALIND MONSALVE RESDIENT Nov 16, 2024 23:44 RAINE HERNANDEZ MD Nov 18, 2024 09:04
[2024-11-17] VITALS (21 sets, daily range): BP systolic 89–145; BP diastolic 41–100; PULSE 58–91; RESP 16–22; TEMP 97.4–98.7; O2SAT 92–100
[2024-11-17] MEDS: SODIUM CHLORIDE 0.9% 1,000 ML IV ONE (00:21)
[2024-11-17 00:23] LABS: Blood Alcohol < 3.0 mg/dL (<10)
[2024-11-17 00:25] LABS: Partial Thromboplastin Time 27.2 SEC (24.5-34.5); Prothrombin Time 10.6 sec (9.3-11.8)
[2024-11-17 00:25] LABS: Cholesterol 159 mg/dL (< 200); HDL Cholesterol 59 mg/dL (40-59); LDL Cholesterol 84 mg/dL (< 100); Triglycerides 85 mg/dL (< 150)
[2024-11-17] MEDS: AZITHROMYCIN 500MG/ 250ML 250 ML IV ONE (00:28)
[2024-11-17] MEDS: PANTOPRAZOLE 40 MG/10 ML VIAL INJ IV ONE (00:28)
[2024-11-17] MEDS: ATORVASTATIN 20 MG TAB PO ONE (00:29)
[2024-11-17] MEDS: LISINOPRIL 5 MG TAB PO ONE (00:29)
[2024-11-17] MEDS: amLODIPine BESYLATE 5 MG TAB PO ONE (00:30)
[2024-11-17 01:26] LABS: Rapid Influenza A Negative (Negative); Rapid Influenza B Negative (Negative)
[2024-11-17 01:27] LABS: COVID19 ANTIGEN SOFIA FIA NEGATIVE (NEGATIVE)
[2024-11-17 01:48] LABS: Urine Bacteria None Seen /hpf (None Seen)
[2024-11-17 02:04] LABS: Urine Amorphous Crystal FEW /hpf (None Seen); Urine Blood Negative /uL (Negative); Urine Clarity Clear (Clear); Urine Color Light-Yellow (Yellow); Urine Mucus FEW (None Seen); Urine Protein, UAD Negative (Negative); Urine Specific Gravity 1.012 (1.001-1.035); Urine Squamous Epithelial Cell None Seen /hpf (<5); Urine Urobilinogen Normal (Negative); Urine WBC < 1 /HPF (0-5); Urine pH 5.5 (5.0-9.0)
[2024-11-17 02:07] LABS: Cannabinoid Screen, Urine Pos (NEGATIVE)
[2024-11-17 02:08] LABS: Amphetamine Screen, Urine Pos (NEGATIVE); Barbiturate Scree,Urine Neg (NEGATIVE); Benzodiazephine Screen, Urine Neg (NEGATIVE); Cocaine Screen, Urine Neg (NEGATIVE); Opiate Scree,Urine Neg (NEGATIVE); Phencyclidine Screen, Urine Neg (NEGATIVE)
[2024-11-17] MEDS ORDERED: NICOTINE 14 MG/24HR TOPICAL PATCH TD PRN (02:30)
[2024-11-17] MEDS: SODIUM CHLORIDE 0.9% 1,000 ML IV SCH (03:47)
[2024-11-17] MEDS ORDERED: ALBU108A5 IN (05:44)
[2024-11-17] MEDS ORDERED: ASPI1TAB20 PO (05:44)
[2024-11-17] MEDS ORDERED: AMLO1TAB22 PO (05:44)
[2024-11-17] MEDS ORDERED: OMEP20TA PO (05:44)
[2024-11-17] MEDS ORDERED: LISI40TA16 PO (05:44)
[2024-11-17 06:36] LABS: Basophils # (auto) 0 10 ^3/uL (0-0.2); Basophils % (auto) 0.1 % (0.0-2.0); Eosinophils # (auto) 0 10 ^3/uL (0-0.8); Eosinophils % (auto) 0.1 % (0.0-7.0); Hematocrit 44.5 % (36.0-46.0); Hemoglobin 14.8 g/dL (12.2-16.2); Lymphocytes # (auto) 0.9 10 ^3/uL (0.4-5.4); Lymphocytes % (auto) 15.9 % (10.0-50.0); Mean Corpuscular Hemoglobin 28.9 pg (28.0-32.0); Mean Corpuscular Hgb Conc. 33.3 g/dL (32.0-36.0); Mean Corpuscular Volume 86.6 fL (80.0-100.0); Monocytes # (auto) 0.1 10 ^3/uL (0-1.3); Monocytes % (auto) 1.4 % (0.0-12.0); Neutrophils # (auto) 4.8 10 ^3/uL (1.6-8.6); Neutrophils % (auto) 82.5 % (37.0-80.0); Nucleated Red Blood Cells % 0.1 %; Platelet Count (auto) 135 10^3/uL (140-450); Red Blood Cells 5.14 10^6/uL (4.0-5.20); Red Cell Distribution Width 13.7 % (11.8-14.3); White Blood Cell 5.8 10^3/uL (4.4-10.8)
[2024-11-17] MEDS: ALBUTEROL SULF 2.5 MG/0.5ML(0.5%) NEB SOLN NEB SCH (06:41)
[2024-11-17] MEDS: IPRATROPIUM BROM 0.5 MG/2.5ML INH SOL NEB SCH (06:41)
[2024-11-17 06:52] LABS: Potassium 4.6 mmol/L (3.5-5.1); Sodium 139 mmol/L (136-145)
[2024-11-17 06:58] LABS: Anion Gap 9 (5-15); Carbon Dioxide 22 mmol/L (20-31)
[2024-11-17 07:03] LABS: Alkaline Phosphatase 138 U/L (46-116); BUN/Creatinine Ratio 14.1 (10.0-20.0); Blood Urea Nitrogen 14 mg/dL (9-23); Calcium 10.8 mg/dL (8.7-10.4); Chloride 108 mmol/L (98-107)
[2024-11-17 07:04] LABS: Total Protein 6.6 g/dL (5.7-8.2)
[2024-11-17 07:05] LABS: Albumin 4.4 g/dL (3.2-4.8); Aspartate Aminotransferase 33 U/L (13-40); Bilirubin, Total 0.4 mg/dL (0.2-1.0)
[2024-11-17 07:07] LABS: Alanine Aminotransferase 59 U/L (7-40); Glucose 239 mg/dL (74-106); Phosphorus 1.5 mg/dL (2.4-5.1)
[2024-11-17 07:14] LABS: Erythrocyte Sedimentation Rate 12 mm/hr (0-20)
[2024-11-17 07:50] LABS: CRP High Sensitivity 1.54 mg/dL (<1.0)
--- NOTE | 2024-11-17 08:47 | DVH ---
INDICATION: transamnitis TECHNIQUE: Multiple real-time sonographic images of the abdomen were obtained. COMPARISON: None FINDINGS: The liver is increased in echogenicity and measures 18.1 cm. No intrahepatic biliary ducta l dilatation is noted. No hepatic masses masses were seen. The gallbladder is removed. Common bile duct measures 5 mm. The right kidney measures 10.2 cm. The right renal echogenicity, contour and cortical thickness are within normal limits. The imaged portion of the pancreas is unremarkable. IMPRESSION: 1. Echogenic liver which can be seen with hepatic steatosis, cirrhosis. 2. Hepatomegaly 3. Cholecystectomy
[2024-11-17] MEDS: PANTOPRAZOLE 40 MG/10 ML VIAL INJ IV SCH (09:23)
[2024-11-17] MEDS: methylPREDNISolone SOD SUCC 40 MG/ML VL IV SCH (09:23)
[2024-11-17] MEDS: AZITHROMYCIN 500MG/ 250ML 250 ML IV SCH (09:24)
[2024-11-17] MEDS: ENOXAPARIN SOD 40 MG/0.4 ML SYRINGE SC SCH (09:30)
[2024-11-17] MEDS: amLODIPine BESYLATE 5 MG TAB PO SCH (09:30)
[2024-11-17] MEDS ORDERED: amLODIPine BESYLATE 5 MG TAB PO SCH (10:00)
[2024-11-17] MEDS ORDERED: LISINOPRIL 5 MG TAB PO SCH (10:00)
--- NOTE | 2024-11-17 10:56 | DVHPN2 ---
Reviewed: Care Plan, H&P, Labs, Medications, Previous Orders, Radiology Changes from previous H/P or p: No Changes Objective Vitals Vital Signs Date Time Temp Pulse Resp B/P (MAP) Pulse Ox O2 Delivery O2 Flow Rate FiO2 11/17/24 10:15 84 16 99 11/17/24 10:07 Room Air* 0 21 11/17/24 09:30 89/41 11/17/24 09:00 98.7 98.7 Intake/Output Intake and Output 11/17/24 07:00 Intake Total 550 ml Balance 550 ml Intake Oral 100 ml IV Total 450 ml Medications Current Medications Medications Dose Ordered Sig/Ariela Route Start Time Stop Time Status Last Admin Dose Admin Acetaminophen/ Hydrocodone Bitart 1 tab Q4HP PRN PO 11/16/24 23:30 Ondansetron HCl 4 mg Q4HP PRN IV 11/16/24 23:30 Enoxaparin Sodium 40 mg DAILY SC 11/17/24 10:00 Nitroglycerin 0.4 mg Q5MINP PRN SL 11/16/24 23:30 Albuterol 2.5 mg Q4HWA NEB 11/17/24 06:00 11/17/24 10:07 2.5 MG Ipratropium [place] 0.5 mg Q4HWA NEB 11/17/24 06:00 11/17/24 10:07 0.5 MG Azithromycin 250 ml @ 125 mls/hr DAILY IV 11/17/24 10:00 11/17/24 09:24 125 MLS/HR Atorvastatin Calcium 40 mg HS PO 11/17/24 22:00 Pantoprazole Sodium 40 mg DAILY IV 11/17/24 10:00 11/17/24 09:23 40 MG Methylprednisolone Sodium Succinate 40 mg DAILY IV 11/17/24 10:00 11/17/24 09:23 40 MG Sodium Chloride 1,000 ml @ 150 mls/hr Q6H40M IV 11/17/24 02:30 11/17/24 03:47 150 MLS/HR Nicotine 1 patch DAILY PRN TD 11/17/24 02:30 Amlodipine Besylate 10 mg DAILY PO 11/17/24 10:00 Laboratory Results Laboratory Tests 11/17/24 05:10 Chemistry Test 11/16/24 19:16 11/17/24 05:10 Albumin 4.9 g/dL (3.2-4.8) H 4.4 g/dL (3.2-4.8) Calcium Level 11.5 mg/dL (8.7-10.4) H 10.8 mg/dL (8.7-10.4) H Magnesium Level 2.0 mg/dL (1.6-2.6) Total Protein 7.7 g/dL (5.7-8.2) 6.6 g/dL (5.7-8.2) Phosphorus Level 1.5 mg/dL (2.4-5.1) L Coagulation Test 11/16/24 22:14 Prothrombin Time 10.6 sec (9.3-11.8) Prothrombin Time INR 1.00 (0.9-1.15) Activated Partial Thromboplast Time 27.2 SEC (24.5-34.5) D-Dimer, Quantitative 0.33 mg/L FEU (0.0-0.49) Lipid panel Test 11/16/24 19:16 Cholesterol Level 159 mg/dL (< 200) HDL Cholesterol 59 mg/dL (40-59) Triglycerides Level 85 mg/dL (< 150) Cardiac Markers Test 11/16/24 19:16 11/17/24 05:10 B-Type Natriuretic Peptide 27.06 pg/mL (0-100) 29.05 pg/mL (0-100) LFT Test 11/16/24 19:16 11/17/24 05:10 Alanine Aminotransferase (ALT) 72 U/L (7-40) H 59 U/L (7-40) H Alkaline Phosphatase 175 U/L (46-116) H 138 U/L (46-116) H Aspartate Amino Transferase (AST) 42 U/L (13-40) H 33 U/L (13-40) Total Bilirubin 0.6 mg/dL (0.2-1.0) 0.4 mg/dL (0.2-1.0) HgA1c, TSH Test 11/16/24 19:16 11/17/24 05:10 Thyroid Stimulating Hormone (TSH) 2.29 uIU/mL (0.55-4.78) Hemoglobin A1c 6.4 % A1C (<5.7) H Urinalysis Test 11/16/24 20:20 Urine Color Light-yellow (Yellow) Urine Clarity Clear (Clear) Urine pH 5.5 (5.0-9.0) Urine Specific [place] 1.012 (1.001-1.035) Urine Protein Negative (Negative) Urine Ketones Negative (Negative) Urine Blood Negative /uL (Negative) Urine Nitrite Negative (Negative) Urine Bilirubin Negative (Negative) Urine Urobilinogen Normal mg/dL (Negative) Urine Leukocyte Esterase Negative /uL (Negative) Urine RBC 1 /hpf (0 - 4) Urine Microscopic WBC < 1 /HPF (0-5) Urine Squamous Epithelial Cells None seen /hpf (<5) Urine Amorphous Crystals Few /hpf (None Seen) Urine Bacteria None seen /hpf (None Seen) Urine Mucus Few (None Seen) Urine Glucose 3+ mg/dL (Normal) H Blood Gas Results Test 11/16/24 21:02 Arterial Blood pH 7.433 (7.350-7.450) FiO2 % 21.0 Labs and/or images reviewed: Labs reviewed by me, Image(s) reviewed by me Assessment/Plan Assessment/Plan Acute exacerbation COPD: Azithromycin med neb History of asthma ? Lung cancer Chest pain: Troponin negative possibly secondary to amphetamine abuse Hypertension Type 2 diabetes Transaminitis Chronic current amphetamine and marijuana abuse: Counseling D-dimer Normal Nolvia test negative COVID test negative Time Spent 55 minutes Plan discussed with: Patient Date of Service: Nov 17, 2024 Billing Provider: RAGHU JAVIER MD Common Visit Codes: [id number] INP/OBS CARE(HIGH) RAGHU JAVIER MD Nov 17, 2024 10:56
[2024-11-17] MEDS: HYDROcodone-ACET 5/325MG TAB PO PRN (14:06)
[2024-11-17] MEDS: ATORVASTATIN 20 MG TAB PO SCH (21:00)
[2024-11-18] VITALS (7 sets, daily range): BP systolic 99–134; BP diastolic 38–75; PULSE 71–88; RESP 18; TEMP 97.3–97.4; O2SAT 92–100
--- NOTE | 2024-11-18 02:25 | DVHSR ---
APPROVED REPORT EXAM: Two-dimensional and M-mode echocardiogram with Doppler and color Doppler. Blood Pressure: 103/48 mmHg INDICATION HF? RISK FACTORS Obesity: Height: 5'2", Weight: 250 DIMENSIONS LVDd4.3 (3.8-5.7cm)LA (2D)3.7 (1.9-4.0cm)Aortic Root3.2 (2.0-3.7cm) LVDs2.9 (2.5-4.0cm)LA (MM) (1.9-4.0cm)Aortic Cusp Exc1.5 (1.5-2.0cm) EF (%) 60.0 (55-70%)Rt. Atrium4.1 (1.9-4.0cm)Asc. Aorta cm IVSd1.0 (0.7-1.1cm)RV (D) (1.8-2.4cm) PWd0.9 (0.7-1.1cm) Mitral Valve MitralMitral Stenosis E/A ratio0.02D MVAcm2 Aortic Valve Aortic ValveAortic Stenosis V11.64m/[place] Mean GR.9mmHg V21.93m/Ashkan Peak GR.15mmHg LVOT Diameter1.7 (1.8-2.4cm)Doppler AVA1.93cm2 Pulmonic Valve V21.03m/s Other Information Technically limited study due to body habitus. Conclusion LV EF IS 65% NORMAL VALVES NO EFFUSION NORMAL RV FUNCTION
--- NOTE | 2024-11-18 09:47 | DVHPN2 ---
Reviewed: Care Plan, H&P, Labs, Medications, Previous Orders, Radiology Changes from previous H/P or p: No Changes Objective Vitals Vital Signs Date Time Temp Pulse Resp B/P (MAP) Pulse Ox O2 Delivery O2 Flow Rate FiO2 11/18/24 08:48 97.4 84 18 134/75 (94) 94 97.4 11/18/24 07:33 Room Air 0.0 11/18/24 07:33 21 Intake/Output Intake and Output 11/18/24 07:00 Intake Total 3050 ml Output Total 1200 ml Balance 1850 ml Intake Oral 1800 ml IV Total 1250 ml Output Urine Total 1200 ml # Voids 3 Medications Current Medications Medications Dose Ordered Sig/Ariela Route Start Time Stop Time Status Last Admin Dose Admin Acetaminophen/ Hydrocodone Bitart 1 tab Q4HP PRN PO 11/16/24 23:30 11/17/24 14:06 1 TAB Ondansetron HCl 4 mg Q4HP PRN IV 11/16/24 23:30 Enoxaparin Sodium 40 mg DAILY SC 11/17/24 10:00 Nitroglycerin 0.4 mg Q5MINP PRN SL 11/16/24 23:30 Albuterol 2.5 mg Q4HWA NEB 11/17/24 06:00 11/18/24 07:33 2.5 MG Ipratropium [place] 0.5 mg Q4HWA NEB 11/17/24 06:00 11/18/24 07:33 0.5 MG Azithromycin 250 ml @ 125 mls/hr DAILY IV 11/17/24 10:00 11/17/24 09:24 125 MLS/HR Atorvastatin Calcium 40 mg HS PO 11/17/24 22:00 11/17/24 21:00 40 MG Pantoprazole Sodium 40 mg DAILY IV 11/17/24 10:00 11/17/24 09:23 40 MG Methylprednisolone Sodium Succinate 40 mg DAILY IV 11/17/24 10:00 11/17/24 09:23 40 MG Sodium Chloride 1,000 ml @ 150 mls/hr Q6H40M IV 11/17/24 02:30 11/18/24 05:10 150 MLS/HR Nicotine 1 patch DAILY PRN TD 11/17/24 02:30 Amlodipine Besylate 10 mg DAILY PO 11/17/24 10:00 Laboratory Results Laboratory Tests 11/17/24 05:10 Urinalysis Test 11/16/24 20:20 Urine Color Light-yellow (Yellow) Urine Clarity Clear (Clear) Urine pH 5.5 (5.0-9.0) Urine Specific [place] 1.012 (1.001-1.035) Urine Protein Negative (Negative) Urine Ketones Negative (Negative) Urine Blood Negative /uL (Negative) Urine Nitrite Negative (Negative) Urine Bilirubin Negative (Negative) Urine Urobilinogen Normal mg/dL (Negative) Urine Leukocyte Esterase Negative /uL (Negative) Urine RBC 1 /hpf (0 - 4) Urine Microscopic WBC < 1 /HPF (0-5) Urine Squamous Epithelial Cells None seen /hpf (<5) Urine Amorphous Crystals Few /hpf (None Seen) Urine Bacteria None seen /hpf (None Seen) Urine Mucus Few (None Seen) Urine Glucose 3+ mg/dL (Normal) H Microbiology Microbiology Date/Time Source Procedure Growth Status 11/17/24 03:46 Nose MRSA Screen - Final Complete Labs and/or images reviewed: Labs reviewed by me, Image(s) reviewed by me Assessment/Plan Assessment/Plan Acute exacerbation COPD: Azithromycin med neb History of asthma ? Lung cancer Chest pain: Troponin negative possibly secondary to amphetamine abuse Hypertension Type 2 diabetes Transaminitis Chronic current amphetamine and marijuana abuse: Counseling D-dimer Normal Nolvia test negative COVID test negative Time Spent 45 minutes Patient feels better and wants to go home Plan discussed with: Patient Date of Service: Nov 18, 2024 Billing Provider: RAGHU JAVIER MD Common Visit Codes: [id number] INP/OBS CARE(HIGH) RAGHU JAVIER MD Nov 18, 2024 09:47
[2024-11-18] MEDS ORDERED: METH4PAK PO (09:48)
[2024-11-18] MEDS ORDERED: AZIT500T66 PO (09:48)
--- NOTE | 2024-11-18 09:52 | DVHDS2 ---
Discharge Summary Date of Admission Nov 16, 2024 at 23:30 Date of Discharge: Nov 18, 2024 Admitting Diagnosis Shortness of breath Wounds: None Labs/Diagnostic Data: Laboratory Results Test 11/17/24 05:10 11/17/24 00:14 11/16/24 23:59 11/16/24 22:14 White Blood Count 5.8 10^3/uL (4.4-10.8) Red Blood Count 5.14 10^6/uL (4.0-5.20) Hemoglobin 14.8 g/dL (12.2-16.2) Hematocrit 44.5 % (36.0-46.0) Mean Corpuscular Volume 86.6 fL (80.0-100.0) Mean Corpuscular Hemoglobin 28.9 pg (28.0-32.0) Mean Corpuscular Hemoglobin Concent 33.3 g/dL (32.0-36.0) Red Cell Distribution Width 13.7 % (11.8-14.3) Platelet Count 135 10^3/uL (140-450) Mean Platelet Volume 11.3 fL (6.9-10.8) Neutrophils (%) (Auto) 82.5 % (37.0-80.0) Lymphocytes (%) (Auto) 15.9 % (10.0-50.0) Monocytes (%) (Auto) 1.4 % (0.0-12.0) Eosinophils (%) (Auto) 0.1 % (0.0-7.0) Basophils (%) (Auto) 0.1 % (0.0-2.0) Neutrophils # (Auto) 4.8 10 ^3/uL (1.6-8.6) Lymphocytes # (Auto) 0.9 10 ^3/uL (0.4-5.4) Monocytes # (Auto) 0.1 10 ^3/uL (0-1.3) Eosinophils # (Auto) 0 10 ^3/uL (0-0.8) Basophils # (Auto) 0 10 ^3/uL (0-0.2) Nucleated Red Blood Cells 0.1 % Erythrocyte Sedimentation Rate 12 mm/hr (0-20) Sodium Level 139 mmol/L (136-145) Potassium Level 4.6 mmol/L (3.5-5.1) Chloride Level 108 mmol/L (98-107) Carbon Dioxide Level 22 mmol/L (20-31) Anion Gap 9 (5-15) Blood Urea Nitrogen 14 mg/dL (9-23) Creatinine 0.99 mg/dL (0.550-1.02) Glomerular Filtration Rate Calc 65 mL/min (>90) BUN/Creatinine Ratio 14.1 (10.0-20.0) Serum Glucose 239 mg/dL (74-106) Hemoglobin A1c 6.4 % A1C (<5.7) Calcium Level 10.8 mg/dL (8.7-10.4) Phosphorus Level 1.5 mg/dL (2.4-5.1) Total Bilirubin 0.4 mg/dL (0.2-1.0) Aspartate Amino Transferase (AST) 33 U/L (13-40) Alanine Aminotransferase (ALT) 59 U/L (7-40) Alkaline Phosphatase 138 U/L (46-116) C-Reactive Protein High Sensitivity 1.54 mg/dL (<1.0) B-Type Natriuretic Peptide 29.05 pg/mL (0-100) Total Protein 6.6 g/dL (5.7-8.2) Albumin 4.4 g/dL (3.2-4.8) Parathyroid Hormone (Intact) 269.2 pg/mL (18.4-80.1) Influenza Type A Antigen Negative (Negative) Influenza Type B Antigen Negative (Negative) SARS-CoV-2 Antigen (Rapid) Negative (NEGATIVE) Prothrombin Time 10.6 sec (9.3-11.8) Prothrombin Time INR 1.00 (0.9-1.15) Activated Partial Thromboplast Time 27.2 SEC (24.5-34.5) D-Dimer, Quantitative 0.33 mg/L FEU (0.0-0.49) Troponin I High Sensitivity < 3 ng/L (</=34) Test 11/16/24 21:02 11/16/24 20:20 11/16/24 19:16 Blood Gas Specimen Type Arterial Blood Gas Sample Site Right radial Blood Gas Patient Temperature 37.0 Arterial Blood Date Drawn [id number] Arterial Blood pH 7.433 (7.350-7.450) Arterial Blood Partial Pressure CO2 33.1 mmHg (32.0-45.0) Arterial Blood Partial Pressure O2 80.2 mmHg (83.0-108.0) Arterial Blood HCO3 21.6 mmol/L (21.0-28.0) Arterial Blood Oxygen Saturation 96.6 % (94.0-98.0) Arterial Blood Base Excess -1.6 mmol/L (-2.0-3.0) Arterial Blood Oxyhemoglobin 93.6 % (94.0-98.0) Arterial Blood Carboxyhemoglobin 2.4 % (0.5-1.5) Arterial Blood Methemoglobin 0.7 % (0.0-1.5) [place] Test Yes Blood Gas Total Hemoglobin 17.40 g/dL (12.0-16.0) Blood Gas Modality Room air FiO2 % 21.0 Urine Color Light-yellow (Yellow) Urine Clarity Clear (Clear) Urine pH 5.5 (5.0-9.0) Urine Specific [place] 1.012 (1.001-1.035) Urine Protein Negative (Negative) Urine Ketones Negative (Negative) Urine Blood Negative /uL (Negative) Urine Nitrite Negative (Negative) Urine Bilirubin Negative (Negative) Urine Urobilinogen Normal mg/dL (Negative) Urine Leukocyte Esterase Negative /uL (Negative) Urine RBC 1 /hpf (0 - 4) Urine Microscopic WBC < 1 /HPF (0-5) Urine Squamous Epithelial Cells None seen /hpf (<5) Urine Amorphous Crystals Few /hpf (None Seen) Urine Bacteria None seen /hpf (None Seen) Urine Mucus Few (None Seen) Urine Glucose 3+ mg/dL (Normal) Urine Opiates Screen Neg (NEGATIVE) Urine Fentanyl Screen Neg (NEGATIVE) Urine Barbiturates Screen Neg (NEGATIVE) Urine Phencyclidine Screen Neg (NEGATIVE) Urine Amphetamines Screen Pos (NEGATIVE) Urine Benzodiazepines Screen Neg (NEGATIVE) Urine Cocaine Screen Neg (NEGATIVE) Urine Cannabinoids Screen Pos (NEGATIVE) Lactic Acid Level 1.2 mmol/L (0.4-2.0) Magnesium Level 2.0 mg/dL (1.6-2.6) Triglycerides Level 85 mg/dL (< 150) Cholesterol Level 159 mg/dL (< 200) LDL Cholesterol 84 mg/dL (< 100) HDL Cholesterol 59 mg/dL (40-59) Vitamin D 25-Hydroxy 20.3 ng/mL (30.0-100) Thyroid Stimulating Hormone (TSH) 2.29 uIU/mL (0.55-4.78) Plasma/Serum Blood Alcohol < 3.0 mg/dL (<10) Other Laboratory Tests 11/17/24 05:10 Brief Hx & Hospital Course: 79-year-old female with a history of COPD asthma hypertension diabetes chronic current amphetamine and marijuana abuse came in complaining of shortness of breaths. Found to have possible community-acquired pneumonia treated with azithromycin and med neb treatment Nolvia test negative flu test negative D- dimer normal patient feels better on room air at the time of discharge and wants to go home. Prescription for azithromycin and Medrol Dosepak transmitted to pharmacy Consults/Reason for consult None Operations or Procedures None Condition at Discharge: Fair Final Diagnosis/Problems List Acute exacerbation COPD: Azithromycin med neb History of asthma Chest pain: Troponin negative possibly secondary to amphetamine abuse Hypertension Type 2 diabetes Transaminitis Chronic current amphetamine and marijuana abuse: Counseling D-dimer Normal Nolvia test negative COVID test negative Discharge Disposition: Home Discharge Instruct/Medications Diet: Cardiac 2g Na,low cholest Activity: Light activity Follow Up/Referral: Follow up with your primary Dr Dr Amaya Medications: Azithromycin Medrol Dosepak Transmitted to the pharmacy 35 (Time Taken for discharge summary 35 minutes) Discharge Statement: "Patient was advised to return to the ER or call 911 if any headaches, dizziness, shortness of breath, chest pain, abdominal pain, bleeding, fevers, or worsening of medical condition. Patient was counseled about treatment plan, medications, possible side effects, patientverbalized understanding. All questions were answered to the best of my ability. This discharge took greater then 30 minutes in planning, reviewing documentation, counseling the patient, and discussing with other team members." ASSESSMENT ASSESSMENT Hospital Course Improved Assessment Acute exacerbation COPD: Azithromycin med neb History of asthma Chest pain: Troponin negative possibly secondary to amphetamine abuse Hypertension Type 2 diabetes Transaminitis Chronic current amphetamine and marijuana abuse: Counseling D-dimer Normal Nolvia test negative COVID test negative Date of Service: Nov 18, 2024 Billing Provider: RAGHU JAVIER MD Common Visit Codes: [id number] DISCH DAY >30min RAGHU JAVIER MD Nov 18, 2024 09:52
--- NOTE | 2024-11-19 11:08 | ECG ---
[facility] Test Date: 2024-11-16 Test Time: 18:59:40 Pat Name: ZEESHAN PEREZ [facility] [place] [facility] Gender[facility] F Cash Reconciliation Specialist: EVA : 1965 Requested By: BHAVIN CHOI Order Number: [id number] Reading MD: Tyrone Vu Measurements Intervals [place] Rate: 74 P: 17 DC: 157 QRS: 38 QRSD: 86 T: 46 QT: 395 QTc: 439 Interpretive Statements Sinus rhythm Electronically Signed On 11-21-2024 21:13:29 PDT by Tyrone Vu Please click the below link to view image of tracing.
== END 2024-11-18 11:20 | disposition home or self-care (01) | DRG 140 ==
LOC: ER 17:47 → OVERFLOW 23:30 → TELE-WESTW 11-17 02:49
PROVIDERS: ATTEND Emergency Medicine
DX: J44.1 Chronic obstructive pulmonary disease with (acute) exacerbation (principal); E11.22 Type 2 diabetes mellitus with diabetic chronic kidney disease; I12.9 Hypertensive chronic kidney disease with stage 1 through stage 4 chronic kidney disease, or unspecified chronic kidney disease; Z66 Do not resuscitate; Z20.822 Contact with and (suspected) exposure to COVID-19; N18.9 Chronic kidney disease, unspecified; J44.0 Chronic obstructive pulmonary disease with (acute) lower respiratory infection; F17.210 Nicotine dependence, cigarettes, uncomplicated; F12.10 Cannabis abuse, uncomplicated; R74.01 Elevation of levels of liver transaminase levels; F15.10 Other stimulant abuse, uncomplicated; Z90.49 Acquired absence of other specified parts of digestive tract; Z86.73 Personal history of transient ischemic attack (TIA), and cerebral infarction without residual deficits; Z98.891 History of uterine scar from previous surgery; Z79.899 Other long term (current) drug therapy
CPT/HCPCS: 36415; 36600; 71045; 76705; 80053; 80061; 80307; 80320; 81001; 82306; 82805; 83036; 83605; 83735; 83880; 83970; 84100; 84443; 84484; 85025; 85379; 85610; 85652; 85730; 86141; 87070; 87081; 87205; 87426; 87804; 93005; 93306; 94640; 96361; 96374; G0378; J2470

== ENCOUNTER 2024-12-31 15:45 | Emergency (ER) | payer MEDICAID ==
[~2024-12-31] VITALS: Ht 160 cm; Wt 111.7 kg
[~2024-12-31 15:45] MED LIST changes: -ACET-1080 PO; +ALBU108A5 IN; +AMLO1TAB22 PO; +ASPI1TAB20 PO; +AZIT500T66 PO; -HYDR-4798 PO; +LISI40TA16 PO; +METH4PAK PO; +OMEP20TA PO
[2024-12-31 16:23] VITALS: BP 133/89; PULSE 86; RESP 22; TEMP 97.7; O2SAT 96
--- NOTE | 2024-12-31 16:51 | ED.PDOC ---
History of Present Illness HPI Comments This is a 59-year-old female who comes in with chief complaint of congestion as well as cough for the past 1-1/2 weeks. There has been no fever, nausea or vomiting. The patient has been coughing with white sputum. She states that the symptoms are not going away so she called her primary care doctor but is not able to get into see them. The patient denies any chest pain or shortness for breath. There has been no vomiting or diarrhea. Chief Complaint: Flu like Time Seen by MD: 16:05 Primary Care Provider: NIVIA Perez Notes: Nurses Notes, Medications, Allergies (No allergies to medications) Allergies: Coded Allergies: NO KNOWN ALLERGIES (Unverified , 03/18/14) Home Meds Active Scripts Methylprednisolone (Medrol Dosepak) 4 Mg [place], 4 MG PO UD, #21 TAB UAD Prov:RAGHU JAVIER MD 11/18/24 Azithromycin (Azithromycin) 500 Mg Tab, 1 TAB PO DAILY, #7 TAB Prov:RAGHU JAVIER MD 11/18/24 Reported Medications Omeprazole (Gnp Omeprazole) 20 Mg Tab, PO, TAB 11/17/24 Albuterol Sulfate (Albuterol Sulfate Hfa) 108 Mcg/Act Aer, IN, AER 11/17/24 Aspirin (Aspir-81) 81 Mg Tab, 1 TAB PO DAILY, #30 TAB 5 Refills 11/17/24 Lisinopril (Lisinopril) 40 Mg Tab, 1 TAB PO DAILY, #30 TAB 5 Refills 11/17/24 Amlodipine Besylate (Amlodipine Besylate) 5 Mg Tab, 1 TAB PO BID, #30 TAB 5 Refills 11/17/24 Information Source: Patient Mode of Arrival: Ambulatory Severity: Mild Timing: Days Duration: Since onset Prehospital treatment: None Associated signs and symptoms No fever or chills but the patient is just congested with a cough Past Medical History PAST MEDICAL HISTORY: Cancer, CKF, COPD, DM, HTN, Liver Surgical History: BTL, Cholecystectomy, , Tonsillectomy [employer] History: Uterine Fibroids Family History Family History: Reviewed,noncontributory to illness, Family hx of HTN Social History Smoker: Cigarettes, Less Than 1 Pack/Day Alcohol: Denies ETOH Use Drugs: Marijuana Lives In: Home Constitutional: denies: chills, diaphoresis, fatigue, fever, malaise, sweats, weakness, others EENTM: reports: others (Congestion); denies: blurred vision, double vision, ear bleeding, ear discharge, ear drainage, ear pain, ear ringing, eye pain, eye redness, hearing loss, mouth pain, mouth swelling, nasal discharge, nose bleeding, nose congestion, nose pain, photophobia, tearing, throat pain, throat swelling, voice changes Respiratory: reports: cough; denies: hemoptysis, orthopnea, SOB at rest, shortness of breath, SOB with excertion, stridor, wheezing, others Cardiovascular: denies: chest pain, dizzy spells, diaphoresis, Dyspnea on exertion, edema, irregular heart beat, left arm pain, lightheadedness, palpitations, PND, syncope, others Gastrointestinal: denies: abdomen distended, abdominal pain, blood streaked bowels, constipated, diarrhea, dysphagia, difficulty swallowing, hematemesis, melena, nausea, poor appetite, poor fluid intake, rectal bleeding, rectal pain, vomiting, others Genitourinary: denies: abnormal vagina bleeding, burning, dyspareunia, dysuria, flank pain, frequency, hematuria, incontinence, pain, , vagina discharge, urgency, others Neurological: denies: dizziness, fainting, headache, left sided numbness, left sided weakness, numbness, paresthesia, pre-existing deficit, right sided numbness, right sided weakness, seizure, speech problems, tingling, tremors, weakness, others Musculoskeletal: denies: back pain, gout, joint pain, joint swelling, muscle pain, muscle stiffness, neck pain, others Integumetry: denies: bruises, change in color, change in hair/nails, dryness, laceration, lesions, lumps, rash, wounds, others Allergic/Immunocompromised: denies: Difficulty Healing, Frequent Infections, Hives, Itching, others Hematologic/Lymphatic: denies: anemia, blood clots, easy bleeding, easy bruising, swollen glands, others Endocrine: denies: excessive hunger, excessive sweating, excessive thirst, excessive urination, flushing, intolerance to cold, intolerance to heat, unexplained weight gain, unexplained weight loss, others Psychiatric: denies: anxiety, bipolar disorder, depression, hopeless, panic disorder, schizophrenia, sleepless, suicidal, others Physical Exam General Appearance: No Apparent Distress HEENT: Normal ENT Inspection, Pharynx Normal, TMs Normal Neck: Full Range of Motion, Non-Tender, Normal, Normal Inspection Respiratory: Chest Non-Tender, Lungs Clear, No Accessory Muscle Use, No Respiratory Distress, Normal Breath Sounds Cardiovascular: No Edema, No JVD, No Murmur, No Gallop, Normal Peripheral Pulses, Regular Rate/Rhythm Breast Exam: Deferred Gastrointestinal: No Organomegaly, Non Tender, No Pulsatile Mass, Normal Bowel Sounds, Soft Genitalia: Deferred Pelvic: Deferred Rectal: Deferred Extremities: No calf tenderness, Normal capillary refill, Normal inspection, Normal range of motion, Non-tender, No pedal edema Musculoskeletal : Apperance: Normal Neurologic: Alert, repeat chief II-XII nml as Tested, No Motor Deficits, Normal Affect, Normal Mood, No Sensory Deficits Cerebellar Function: Normal Reflexes: Normal Skin: Dry, Normal Color, Warm Lymphatic: No Adenopathy Was a procedure done? Was a procedure done?: No Differential Dx Considerations may include: Bronchitis, pneumonia, generalized weakness X-Ray, Labs, Meds, VS Vital Signs Date Time Temp Pulse Resp B/P (MAP) Pulse Ox O2 Delivery O2 Flow Rate FiO2 12/31/24 16:23 Room Air 0 12/31/24 16:23 97.7 86 22 133/89 (104) 96 97.7 The chest x-ray shows peribronchial cuffing consistent with acute bronchitis The patient is being discharged and will follow up with the primary care doctor The patient will return to the emergency department's condition worsens The patient was given a prescription of Zithromax At this time, the patient is discharged Images Reviewed?: Images reviewed and evaluated by me Time of 1ST Reevaluation: 16:44 Reevaluation 1ST: Improved Patient Education/Counseling: Diagnosis, Treatment, Prognosis, Need For Follow Up Family Education/Counseling: No Family Present Departure 1 Departure Time of Disposition: 16:43 Impression: Primary Impression: Acute bronchitis Qualified Codes: J20.9 - Acute bronchitis, unspecified Disposition: HOME / SELF CARE / HOMELESS Condition: Fair Discharged With: Self Critical Care Note Critical Care Time?: No Stability Stability form required: No Heart Score Heart Score: Heart Score Response (Comments) Value History N/A 0 EKG N/A 0 Age N/A 0 Risk Factors N/A 0 Troponin N/A 0 Total 0 MIRIAN VELASQUEZ MD December 31, 2024 16:51
--- NOTE | 2024-12-31 17:14 | DVH ---
EXAM: XR Chest, 2 Views CLINICAL INDICATION: cough TECHNIQUE: Frontal and lateral views of the chest. COMPARISON: None FINDINGS: LUNGS AND PLEURAL SPACES: Unremarkable. No consolidation. No pneumothorax. HEART: Unremarkable. No cardiomegaly. MEDIASTINUM: Unremarkable. Normal mediastinal contour. BONES/JOINTS: Unremarkable. No acute fracture. OTHER FINDINGS: . IMPRESSION: No acute cardiopulmonary process.
== END 2024-12-31 18:50 | disposition home or self-care (01) ==
LOC: ER 15:45
DX: J20.9 Acute bronchitis, unspecified (principal); I11.0 Hypertensive heart disease with heart failure; I50.9 Heart failure, unspecified; E11.9 Type 2 diabetes mellitus without complications; J44.0 Chronic obstructive pulmonary disease with (acute) lower respiratory infection; F17.210 Nicotine dependence, cigarettes, uncomplicated; Z79.82 Long term (current) use of aspirin; Z79.899 Other long term (current) drug therapy; Z90.49 Acquired absence of other specified parts of digestive tract; Z90.89 Acquired absence of other organs; Z98.51 Tubal ligation status
CPT/HCPCS: 71046